=== PATIENT | male | born 1975 | race African-American/Black ===

== ENCOUNTER 2016-05-15 13:37 | Outpatient (CLI) | payer OTHER ==
[2015-09-26 01:06] VITALS: BP 179/106
--- NOTE | 2016-05-15 20:41 | Diagnostic Imaging Report ---
CONOR THOMAS [facility] [address] [facility] [address] [place] [address]. [id number] Report Submission Date: May 15, 2016 3:13:26 PM AUTOMOTIVE ACCESSORY INSTALLER Patient Study Name: HAILEE WILKS Date: May 15, 2016 1:57:01 PM AUTOMOTIVE ACCESSORY INSTALLER Modality Type: CR Gender: M Description: CHEST : 77 Institution: [facility] Physician: CONOR THOMAS Chest PA and lateral views Clinical history: fever and sore throat since yesterday Normal heart shadow and mediastinum. Clear lungs without acute infiltrates or pleural effusion. Normal bony thorax. Impression: Normal chest Electronically signed on May 15, 2016 3:13:26 PM AUTOMOTIVE ACCESSORY INSTALLER by: Az HUANG
== END 2016-05-15 13:40 ==
LOC: RAD 13:37
PROVIDERS: ATTEND Physician Assistant
DX: R06.02 Shortness of breath (principal); R05 Cough
CPT/HCPCS: 71020

== ENCOUNTER 2016-06-26 20:23 | Emergency (ER) | payer SELFPAY ==
[2016-06-26] MEDS ORDERED: MORPHINE SULFATE 4 MG/ML DISP.SYRIN IVP ONE ×3 (20:26→22:05)
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
[2016-06-26 22:36] VITALS: BP 169/100
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
== END 2016-06-26 22:05 | disposition short-term general hospital (02) ==
LOC: ED 20:23
DX: M25.512 Pain in left shoulder (principal); Y04.0XXA Assault by unarmed brawl or fight, initial encounter; Y93.9 Activity, unspecified; Y99.9 Unspecified external cause status
CPT/HCPCS: 73030; 73560; J2270; 96374; 96375; 99284; S1016

== ENCOUNTER 2016-11-30 16:20 | Emergency (ER) | payer OTHER ==
--- NOTE | 2016-11-30 16:49 | ED Physician Documentation ---
General Adult - HISTORIAN Historian: patient - HPI Stated Complaint: DMI, hyperglycemia Chief Complaint: General Adult Onset: days ago Timing: still present Further Comments: yes (Pt is a 41 yo aa male with DMI, who had abnormal lab values earlier today and was told to come to ER.) - ROS CONST: no problems EYES/ENT: none CVS/RESP: none GI/: other (very ) - PAST HX Past History: other (HTN, DMI) Other History: other (shoulder injury, awaiting surgery) Allergies/Adverse Reactions: Allergies Allergy/AdvReac Type Severity Reaction Status Date / Time barium iodide Allergy Intermediate Hives Verified 11/30/16 16:54 levofloxacin [From Levaquin] Allergy Intermediate Hives Verified 11/30/16 16:54 contrast dye Allergy Severe Localized Uncoded 11/30/16 16:54 Swelling Home Medications: Ambulatory Orders Medication Instructions Recorded Metformin HCl [GLUCOPHAGE] 500 mg PO D 04/22/12 Metoprolol Succinate 2 tab PO DAILY 04/22/12 Valsartan [Diovan] 1 tab PO DAILY 04/22/12 amLODIPine BESYLATE [Norvasc] 11/30/16 - SOCIAL HX Smoking History: other (unknown) - FAMILY HX Family History: No - VITAL SIGNS Vital Signs: Vital Signs Temp Pulse Resp BP Pulse Ox 169/100 06/26/16 22:05 - REVIEWED ASSESSMENTS Nursing Assessment Reviewed: Yes Vitals Reviewed: Yes Progress - Progress Progress: VBG pH = 7.39 BP 197/132 Amlodipine 5 mg po x 2 Insulin regular 10 units IV Glucose 421-->305 Insulin 10 units SC BP 165/10 Rx Bactrim DS po bid x 5 days for UTI. Follow up with primary provider in the morning about blood pressure and glucose levels and next available appointment. General Adult Physical Exam - PHYSICAL EXAM GENERAL APPEARANCE: mild distress (obese) EENT: pharynx normal NECK: normal inspection, supple RESPIRATORY: no resp distress, chest non-tender, breath sounds normal CVS: reg rate & rhythm, heart sounds normal ABDOMEN: soft, no organomegaly, normal bowel sounds BACK: normal inspection SKIN: warm/dry, normal color EXTREMITIES: non-tender, normal range of motion, no evidence of injury NEURO: oriented X3, motor nml, sensation nml Discharge Clincal Impression: DMI hyperglycemia HTN (hypertension) Qualifiers: Hypertension type: unspecified Qualified Code(s): I10 - Essential (primary) hypertension UTI (urinary tract infection) Qualifiers: Urinary tract infection type: site unspecified Hematuria presence: with hematuria Qualified Code(s): N39.0 - Urinary tract infection, site not specified ; R31.9 - Hematuria, unspecified Referrals: Tyesha Beltran [Primary Care Provider] - Condition: Stable Disposition: 01 HOME, SELF-CARE Decision to Admit: NO Decision Time: 19:33
[2016-11-30 17:31] LABS: PH BG VENOUS 7.39 (7.32-7.43)
[2016-11-30 17:32] LABS: BASOPHILS % 0.4 (0.0-1.5); MEAN CORPUSCULAR HEMOGLOBIN 31.8 pg (28.0-34.0); MEAN CORPUSCULAR VOLUME 91.7 fl (80.0-100.0); MONOCYTES % 5.2 % (0.0-11.0); NEUTROPHILS # 7.5 # k/uL (1.4-7.7)
[2016-11-30] MEDS: INSULIN REGULAR, HUMAN 100 UNIT/ML 3ML VIAL IV ONE (17:32)
[2016-11-30 17:35] LABS: APPEARANCE,URINE Clear (CLEAR); COLOR,URINE Yellow (YELLOW); OCCULT BLOOD,URINE 1+ (NEGATIVE); UROBILINOGEN URINE 0.2 Eu (0.2-1.0)
[2016-11-30] MEDS: amLODIPine BESYLATE 5 MG TABLET PO ONE ×2 (17:40→18:48)
[2016-11-30 17:43] LABS: AMORPHOUS SEDIMENT,UR FEW (NEGATIVE)
[2016-11-30 17:47] LABS: eGFR (African) > 60; eGFR (Non-African) > 60
[2016-11-30] MEDS: INSULIN REGULAR, HUMAN 100 UNIT/ML 3ML VIAL SQ ONE (18:50)
[2016-11-30 19:18] VITALS: BP 165/107
[2016-11-30] MEDS ORDERED: SULFAMETHOXAZOLE/TRIMETHOPRIM 1 EACH TABLET PO ONE (19:40)
== END 2016-11-30 19:50 | disposition home or self-care (01) ==
LOC: ED 16:20
DX: E10.65 Type 1 diabetes mellitus with hyperglycemia (principal); I10 Essential (primary) hypertension; R31.9 Hematuria, unspecified
CPT/HCPCS: 36415; 80053; 81002; 82805; 85025; 87086; J1815; 96374; 99283; S1016

== ENCOUNTER 2017-11-30 17:12 | Outpatient (CLI) | payer OTHER ==
[2017-03-28 22:25] VITALS: BP 204/115
== END 2017-11-30 17:13 ==
LOC: LABRHC 17:12
PROVIDERS: ATTEND Nurse Practitioner Family
DX: R07.0 Pain in throat (principal)
CPT/HCPCS: 87070

== ENCOUNTER 2018-01-16 17:50 | Emergency (ER) | payer SELFPAY ==
--- NOTE | 2018-01-16 18:28 | ED Physician Documentation ---
General Adult - HISTORIAN Historian: patient - HPI Stated Complaint: Urinary Symptoms Chief Complaint: General Adult Onset: days ago (1) Timing: still present Severity: mild Further Comments: yes (Pt is a 43 yo male with DM and hx of UTI's. Pt has had discomfort voiding, some mild L-sided back pain, and a cough, with congestion in his L upper chest. He wonders if he could have pneumonia. No fever. No n/v.) - ROS CONST: other (malaise) EYES/ENT: none CVS/RESP: cough, other (congestion in L upper chest) GI/: problems urinating (discomfort voiding; urinary frequency) MS/SKIN/LYMPH: none - PAST HX Past History: other (UTI's, DM, HTN, HLD) Allergies/Adverse Reactions: Allergies Allergy/AdvReac Type Severity Reaction Status Date / Time barium iodide Allergy Intermediate Hives Verified 03/28/17 21:49 levofloxacin [From Levaquin] Allergy Intermediate Hives Verified 03/28/17 21:49 contrast dye Allergy Severe Localized Uncoded 11/30/16 16:54 Swelling Home Medications: Ambulatory Orders Medication Instructions Recorded amLODIPine BESYLATE [Norvasc] 10 mg PO DAILY 11/30/16 Azithromycin 250 mg PO DAILY #5 tablet 01/16/18 Chlorthalidone [Thalitone] 25 mg PO BID 01/16/18 Losartan Potassium [Cozaar] 100 mg PO DAILY 01/16/18 Metoprolol Succinate [Toprol Xl] 100 mg PO DAILY 01/16/18 Omeprazole 20 mg PO BID 01/16/18 Sertraline HCl [Zoloft] 50 mg PO DAILY 01/16/18 Valsartan 320 mg PO DAILY 01/16/18 gliPIZIDE [Glucotrol] 10 mg PO TID 01/16/18 - SOCIAL HX Smoking History: non-smoker - FAMILY HX Family History: No - VITAL SIGNS Vital Signs: Vital Signs Temp Pulse Resp BP Pulse Ox 98.1 F 72 18 163/88 96 01/16/18 17:50 01/16/18 17:50 01/16/18 17:50 01/16/18 17:50 01/16/18 17:50 - REVIEWED ASSESSMENTS Nursing Assessment Reviewed: Yes Vitals Reviewed: Yes Progress - Progress Progress: CXR: 1. Central pulmonary artery enlargement, potentially representing pulmonary hypertension. 2. Obesity. 3. Upper normal heart size. Rocephin 1 gm IM Azithromycin 500 mg po in ER. Rx Azithromycyin 250 mg po qd x 4 days. Start on 01/17/18. ED Results Lab/Radiology - Orders Orders: ED Orders Category Date Time Status CHEST 2VIEW [RAD] Stat Exams 01/16/18 Ordered GC [CHLAMYDIA & GONORRHOEAE] Stat Lab 01/16/18 Ordered URINALYSIS Routine Lab 01/16/18 Ordered General Adult Physical Exam - PHYSICAL EXAM GENERAL APPEARANCE: mild distress EENT: pharynx normal NECK: normal inspection, supple RESPIRATORY: no resp distress, chest non-tender, breath sounds normal CVS: reg rate & rhythm, heart sounds normal ABDOMEN: soft, normal bowel sounds BACK: normal inspection, CVA tenderness (R) (mild) SKIN: warm/dry, normal color EXTREMITIES: non-tender, normal range of motion, no evidence of injury NEURO: oriented X3, motor nml, sensation nml Discharge Clincal Impression: dysuria, chest congestion Prescriptions: Azithromycin 250 mg PO DAILY #5 tablet Referrals: Tyesha Beltran [Primary Care Provider] - Condition: Good Disposition: 01 HOME, SELF-CARE Decision to Admit: NO Decision Time: 19:03
--- NOTE | 2018-01-16 19:07 | Diagnostic Imaging Report ---
BRIGIDO ROSE [facility] [address] Replaced By [facility] [address] [place] [address]. [id number] Report Submission Date: Jan 16, 2018 7:06:12 PM MEDICAL DRIVER Patient Study Name: HAILEE WILKS Date: Jan 16, 2018 6:12:42 PM MEDICAL DRIVER Modality Type: DX Gender: M Description: CHEST : 77 Institution: [facility] Physician: BRIGIDO ROSE Chest two views History: Chest and back pain Findings: The lungs are clear. There is no pleural effusion. Heart size is upper normal. Central pulmonary artery enlargement is observed. Osseous structures are intact. Obesity slightly limits the exam. Impression: 1. Central pulmonary artery enlargement, potentially representing pulmonary hypertension. 2. Obesity. 3. Upper normal heart size. Electronically signed on Jan 16, 2018 7:06:12 PM MEDICAL DRIVER by: Antonio HUANG
[2018-01-16] MEDS ORDERED: Lidocaine 1% 5ml(IM or SUTURE)(PAIN CLINIC) ONE (19:12)
[2018-01-16] MEDS ORDERED: cefTRIAXone SODIUM 1 GM VIAL ONE (19:12)
[2018-01-16] MEDS: AZITHROMYCIN 250 MG TABLET PO ONE (19:16)
[2018-01-16] MEDS: cefTRIAXone SODIUM 1 GM VIAL IM SCH (19:16)
[2018-01-16 19:39] VITALS: BP 159/84
[2018-01-17 06:54] LABS: APPEARANCE,URINE CLEAR (CLEAR); COLOR,URINE YELLOW (YELLOW); OCCULT BLOOD,URINE NEGATIVE (NEGATIVE); PH URINE 6.5 (5.0 - 8.0); UROBILINOGEN URINE 0.2 Eu (0.2-1.0)
== END 2018-01-16 19:25 | disposition home or self-care (01) ==
LOC: ED 17:50
DX: R30.0 Dysuria (principal); R09.89 Other specified symptoms and signs involving the circulatory and respiratory systems
CPT/HCPCS: 71046; 81002; 87491; 87591; J0696; 96372; 99283